=== PATIENT | male | born 1950 | race African-American/Black ===

== ENCOUNTER 2017-02-20 11:42 | Emergency (ER) | payer OTHER ==
[2017-02-20 11:48] VITALS: BP 128/43; PULSE 58; TEMP 98.2; BMI 21.7
--- NOTE | 2017-02-20 13:01 | PDOC ---
History of Present Illness - General History Source: Patient Exam Limitations: No Limitations <Michael Turcios - Last Filed: 02/20/17 13:01> - General History Source: Patient Exam Limitations: No Limitations - History of Present Illness Initial Comments: 02/20/17 13:02 The patient is a 66 year old male, with a significant past medical history of HIV, who presents to the emergency department with inguinal hernia. The patient reports first noticing the hernia about 5 days ago and has had pain in his groin since. He denies any recent fevers, chills, headache or dizziness. He denies any recent nausea, vomit, diarrhea or constipation. He denies any recent chest pain or shortness of breath. He denies any recent dysuria, frequency, urgency or hematuria. Allergies: Penicillin Past surgical history: Bilateral Knee and hip replacement Social History: Nonsmoker. Denies EtOH use and recreational drug use. Primary Care Physician: <Too Mayberry - Last Filed: 02/20/17 13:03> - General Chief Complaint: Edema Stated Complaint: SWOLLEN IN THE GROIN AREA Time Seen by Provider: 02/20/17 12:45 Past History - Past Medical History Anemia: No Asthma: No Cancer: No Cardiac Disorders: No CVA: No COPD: No CHF: No Dementia: No Diabetes: No GI Disorders: No Disorders: No HTN: No Hypercholesterolemia: No HIV: Yes Liver Disease: No Psychiatric Problems: No Seizures: No Thyroid Disease: No - Surgical History Abdominal Surgery: No Appendectomy: No Cardiac Surgery: No Cholecystectomy: No Lung Surgery: No Neurologic Surgery: No Orthopedic Surgery: Yes (bilat knee, r hip replacement s/p trauma) - Psycho/Social/Smoking Cessation Hx Anxiety: No Suicidal Ideation: No Smoking History: Current every day smoker Have you smoked in the past 12 months: Yes Number of Cigarettes Smoked Daily: 1 Cigars Per Day: 0 Information on smoking cessation initiated: No Hx Alcohol Use: Yes (SOCIAL) Drug/Substance Use Hx: No Substance Use Type: None Hx Substance Use Treatment: No <Michael Turcios - Last Filed: 02/20/17 13:01> <Too Mayberry - Last Filed: 02/20/17 13:03> - Past Medical History Allergies/Adverse Reactions: Allergies Allergy/AdvReac Type Severity Reaction Status Date / Time penicillin G Allergy Mild Rash Verified 02/20/17 11:48 Home Medications: Ambulatory Orders Unobtainable [Unobtainable] 02/20/17 Review of Systems - Review of Systems Able to Perform ROS?: Yes Comments:: 02/20/17 13:02 GENERAL/CONSTITUTIONAL: No fever or chills. No weakness. HEAD, EYES, EARS, NOSE AND THROAT: No change in vision. No ear pain or discharge. No sore throat. CARDIOVASCULAR: No chest pain or shortness of breath. RESPIRATORY: No cough, wheezing, or hemoptysis. GASTROINTESTINAL: No nausea, vomiting, diarrhea or constipation. GENITOURINARY: No dysuria, frequency, or change in urination. MUSCULOSKELETAL: No joint or muscle swelling or pain. No neck or back pain. SKIN: No rash NEUROLOGIC: No headache, vertigo, loss of consciousness, or change in strength/ sensation. ENDOCRINE: No increased thirst. No abnormal weight change. HEMATOLOGIC/LYMPHATIC: No anemia, easy bleeding, or history of blood clots. ALLERGIC/IMMUNOLOGIC: No hives or skin allergy. <Too Mayberry - Last Filed: 02/20/17 13:03> *Physical Exam - Vital Signs Last Vital Signs Temp Pulse Resp BP Pulse Ox 98.2 F 58 L 20 128/43 98 02/20/17 11:45 02/20/17 11:45 02/20/17 11:45 02/20/17 11:45 02/20/17 11:45 <Michael Turcios - Last Filed: 02/20/17 13:01> - Vital Signs Last Vital Signs Temp Pulse Resp BP Pulse Ox 98.2 F 58 L 20 128/43 98 02/20/17 11:45 02/20/17 11:45 02/20/17 11:45 02/20/17 11:45 02/20/17 11:45 - Physical Exam Comments: 02/20/17 13:02 GENERAL: Awake, alert, and fully oriented, in no acute distress HEAD: No signs of trauma EYES: PERRLA, EOMI, sclera anicteric, conjunctiva clear ENT: Auricles normal inspection, hearing grossly normal, nares patent, oropharynx clear without exudates. Moist mucosa NECK: Normal ROM, supple, no lymphadenopathy, JVD, or masses LUNGS: Breath sounds equal, clear to auscultation bilaterally. No wheezes, and no crackles HEART: Regular rate and rhythm, normal S1 and S2, no murmurs, rubs or gallops ABDOMEN: Soft, nontender, normoactive bowel sounds. No guarding, no rebound. No masses. No hernias appreciated. EXTREMITIES: Normal range of motion, no edema. No clubbing or cyanosis. No cords, erythema, or tenderness NEUROLOGICAL: Cranial nerves II through XII grossly intact. Normal speech, normal gait SKIN: Warm, Dry, normal turgor, no rashes or lesions noted. <Too Mayberry - Last Filed: 02/20/17 13:03> Medical Decision Making - Medical Decision Making 02/20/17 12:58 A portion of this note was written by my scribe under my supervision. Vital Signs Temp Pulse Resp BP Pulse Ox 98.2 F 58 L 20 128/43 98 02/20/17 11:45 02/20/17 11:45 02/20/17 11:45 02/20/17 11:45 02/20/17 11:45 66 year old male c/ hx of HIV on HAART p/w bilateral inguinal hernias. The patient reports intermittent bulging in bilateral inguinal hernias, reducible. Reports that he notices it standing up but reduces spontaneously. Denies pain, nausea, vomiting. Reports normal bowel movements. The patient has bilateral inguinal hernias, reducible. It is not present at the moment and the patient is well-appearing. No diagnostics or workup needed at this time. Reassurance given. Will refer to a general surgeon for further management as an outpatient. Return precautions given including nausea vomiting, severe pain, fever. <Michael Turcios - Last Filed: 02/20/17 13:01> *DC/Admit/Observation/Transfer - Discharge Dispostion Admit: No <Michael Turcios - Last Filed: 02/20/17 13:01> - Attestations Scribe Attestion: 02/20/17 13:03 Documentation prepared by Too Mayberry, acting as medical billing coordinator for Michael Turcios MD. <Too Mayberry - Last Filed: 02/20/17 13:03> Diagnosis at time of Disposition: Hernia - Discharge Dispostion Disposition: HOME Condition at time of disposition: Stable - Referrals Referrals: Brandon Espinosa MD [Staff Physician] - - Patient Instructions Printed Discharge Instructions: Groin Hernia -- Adult Additional Instructions: Please make an appointment with a general surgeon. Call to schedule an appointment. If you have uncontrollable pain, persistent nausea and vomiting, high fevers, please return to the ER for further evaluation.
== END 2017-02-20 13:26 | disposition home or self-care (01) ==
LOC: JER 11:42
DX: K40.90 Unilateral inguinal hernia, without obstruction or gangrene, not specified as recurrent (principal); F17.210 Nicotine dependence, cigarettes, uncomplicated; Z21 Asymptomatic human immunodeficiency virus [HIV] infection status
CPT/HCPCS: 99282-25

== ENCOUNTER 2017-03-22 11:34 | Inpatient (IN) | payer OTHER ==
--- NOTE | 2017-03-22 12:15 | PDOC ---
Attending Attestation - Resident Resident Name: Kassy Peters - ED Attending Attestation I have performed the following: I have examined & evaluated the patient, The case was reviewed & discussed with the resident, I agree w/resident's findings & plan, Exceptions are as noted - HPI HPI: 03/22/17 13:41 67y M hx of HIV on haart, presenting with weakness x 2 days. Pt states for the past 2 days he has felt weak,has fallen several times. Also endorsed some urinary incontinence. Family noticed he had a left facial droop yesterday. Pt denies any focal weakness. NO associaed fever chills, chest pain, sob, dizziness, headache, vision cahnges, numbness/tingling weakness, back pain, recent trauma/injury, dysuria, diarrhea. Constitutional - no reported Fever, Chills, HEENT: no reported vision changes, sore throat Respiratory: no reported cough, sob, hemoptysis Cardiac: no reported chest pain, palpitations, light headedness, leg swelling Abd/GI: no reported abd pain, nausea, vomiting, blood per rectum, melena, diarrhea : no reported dysuria, frequency, discharge Musculskelatal - no reported back pain, joint swelling skin - no reported bruising, erythema, rash neurological: +generalized weakness no reported headache, numbness, focal weakness, tingling, ataxia, hematologic: no reported anemia, easy bruising, easy bleeding GENERAL: The patient is awake, alert, and fully oriented, Nontoxic - in no acute distress. Cacectic, tremulous HEAD: Normocephalic, atraumatic. EYES: extraocular movements intact, sclera anicteric, conjunctiva clear. ENT: Normal voice, Moist mucous membranes. NECK: Normal range of motion, supple LUNGS: Breath sounds equal, clear to auscultation bilaterally. No wheezes, no rhonchi, no rales. HEART: Regular rate and rhythm, normal S1 and S2 without murmur, rub or gallop. ABDOMEN: Soft, nontender, normoactive bowel sounds. No guarding, no rebound. . No CVA tenderness EXTREMITIES: Normal range of motion, no edema. No clubbing or cyanosis. No cords, erythema, or tenderness. PSYCH: Normal mood, normal affect. SKIN: Warm, Dry, normal turgor, NEURO: Mental status: The patient is oriented x3. Cranial nerves: +mild flatening of L nasolabial fold Motor: 5/5 in upper and lower extermities Sensation: Sensation is intact to light touch throughout. r Gait: Normal differential includes occult infect, hypoglycemia, cva, anemia, metabolic dernagement will obtin blood work, ua, ct head 03/22/17 18:11 MRI noted for acute cortical infarcts pt given ASA will admit for further management to stroke unit neuro consulted Not TPA candidate due to unclear time of onset well outside of 6hrs - Physicial Exam PE: 03/22/17 19:46 see abovbe - Medical Decision Making 03/22/17 19:46 see above 03/22/17 19:53 Heart Score/ECG Review - ECG Impressions Comment:: 03/22/17 19:47 Twelve-lead EKG was performed and reviewed by me. There is normal sinus rhythm with a rate of 55 PACs with bigeminy nonspecific ST changes NIH Stroke Scale - Last Known Well Date/Time & Onset Date Last Known Well: 03/19/17 Time Last Known Well: 18:00 - Initial Evaluation Level of consciousness: Alert Ask patient the month and their age: Answers both correctly Ask patient to open & close eyes; make fist and let go: Obeys both correctly Best gaze (horizontal eye movement): Normal Visual field testing: No visual field loss Facial paresis (Show teeth/raise eyebrows/close eyes tight): Minor paralysis ( flattened nasolabial fold, asymmetry on smiling) Motor Function: Left Arm: Normal Motor Function: Right Arm: Normal (extends arm 90 (or 45) degrees for 10 seconds without drift Motor Function: Left Leg: Normal (extends leg 30 degrees for 5 seconds without drift) Motor Function: Right Leg: Normal (extends leg 30 degrees for 5 seconds without drift) Limb Ataxia: No ataxia Sensory(Use pinprick test arms,legs,trunk,face/side to side): Normal Best language (Describe picture, name items, read sentences): No Aphasia Dysarthria (read several words): Normal articulation Extinction and Inattention: No abnormality - Total Score NIH Stroke Scale Score: 1
--- NOTE | 2017-03-22 12:22 | PDOC ---
History of Present Illness - General Chief Complaint: Weakness Stated Complaint: Weakness Time Seen by Provider: 03/22/17 11:48 History Source: Patient Exam Limitations: No Limitations - History of Present Illness Initial Comments: 03/22/17 12:23 CC: "I feel weak" Patient is a 67 y.o. male with a PMH of HIV (on HAART, most recent CD4 629) who presents to our ED today c/o 2 day h/o of weakness. Patient states he woke up two days previous and he felt weak which he describes as little strength and a generalized fatigue. Patient notes he can walk but feels very tired when he does so though he denies any associated chest pain or shortness of breath. Patient also notes that yesterday he felt the urge to urinate but couldn't do so. Patient was evaluated in the HIV clinic today and was instructed to come to the ED when they noted L sided facial droop on exam Timing/Duration: other (2 days) Severity: mild Modifying Factors: improves with: rest Associated Symptoms: reports: denies symptoms Aspirin Received prior to arrival: Yes: no aspirin today Past History - Past Medical History Allergies/Adverse Reactions: Allergies Allergy/AdvReac Type Severity Reaction Status Date / Time penicillin G Allergy Mild Rash Verified 03/22/17 12:04 Home Medications: Ambulatory Orders Unobtainable [Unobtainable] 03/22/17 Anemia: No Asthma: No Cancer: No Cardiac Disorders: No CVA: No COPD: No CHF: No Dementia: No Diabetes: No GI Disorders: No Disorders: No HTN: No Hypercholesterolemia: No HIV: Yes Liver Disease: No Psychiatric Problems: No Seizures: No Thyroid Disease: No - Surgical History Abdominal Surgery: No Appendectomy: No Cardiac Surgery: No Cholecystectomy: No Lung Surgery: No Neurologic Surgery: No Orthopedic Surgery: Yes (bilat knee, r hip replacement s/p trauma) - Immunization History Immunization Up to Date: Yes - Psycho/Social/Smoking Cessation Hx Anxiety: No Suicidal Ideation: No Smoking History: Current every day smoker Have you smoked in the past 12 months: Yes Number of Cigarettes Smoked Daily: 1 Cigars Per Day: 0 Information on smoking cessation initiated: No Hx Alcohol Use: No Drug/Substance Use Hx: No Substance Use Type: None Hx Substance Use Treatment: No *Physical Exam - Vital Signs Last Vital Signs Temp Pulse Resp BP Pulse Ox 98.7 F 69 16 142/97 100 03/22/17 11:47 03/22/17 11:47 03/22/17 11:47 03/22/17 11:47 03/22/17 11:47 - Physical Exam General Appearance: Yes: Appropriately Dressed, Cachetic HEENT: positive: EOMI, RAHEEM Neck: positive: Trachea midline, Supple Respiratory/Chest: positive: Lungs Clear, Normal Breath Sounds Cardiovascular: positive: Regular Rhythm, Regular Rate, S1, S2 Gastrointestinal/Abdominal: positive: Normal Bowel Sounds, Soft Musculoskeletal: positive: Normal Inspection, Other (Normal non-anatalgic gait) Extremity: positive: Normal Inspection, Normal Range of Motion Neurologic: positive: associate justice II-XII NML intact, Fully Oriented, Alert, Motor Strength 5/5, Facial Droop (L sided facial drop) ED Treatment Course - LABORATORY CBC & Chemistry Diagram: 03/22/17 12:26 03/22/17 12:26 Medical Decision Making - Medical Decision Making 03/22/17 12:31 As patient has noted L sided facial droop (CN VII intact) CT Scan of the head was ordered to r/o CVA noting that patient is outside window for TPA (symptom onset > 48 hours). CBC, BMP were within normal limits, making anemia or metabolic etiologies less likely. As patient's CT scan showed periventricular white matter lesions suggestive of possible MS, patient was sent for MRI. MRI showed: (1) R frontal and subcortical infarct; (2) chronic cerebral infarct and (3) punctuate chronic L pontine infarct. Aspirin was administered, neurology consulted and patient was admitted under Dr. Rodriguez. *DC/Admit/Observation/Transfer Diagnosis at time of Disposition: CVA (cerebral vascular accident) - Discharge Dispostion Admit: Yes - Attestations Physician Attestion: 03/22/17 20:00 I, Dr. Kassy Peters, attest that this document has been prepared under my direction and personally reviewed by me in its entirety. I further attest, that it accurately reflects all work, treatment, procedures and medical decision -making performed by me.
[2017-03-22 12:32] LABS: BASOPHIL 0.9 % (0-2.0); EOSINOPHIL 3.2 % (0-4.5); MCH 31.4 pg (25.7-33.7); MEAN CELL VOLUME 92.4 fl (80-96); MEAN PLT VOLUME 7.9 fl (7.5-11.1); NEUTROPHILS 55.3 % (42.8-82.8); PLATELET COUNT 175 K/MM3 (134-434); WHITE BLOOD COUNT 4.4 K/mm3 (4.0-10.0)
[2017-03-22 12:59] LABS: ALBUMIN 3.9 g/dl (3.4-5.0); ANION GAP 7 (8-16); BILIRUBIN,TOTAL 0.6 mg/dL (0.2-1.0); CO2 27 mmol/L (21-32); CREATININE 1.5 mg/dL (0.7-1.3); GLUCOSE,RANDOM 107 mg/dL (74-106); SGOT/AST 37 U/L (15-37); SGPT/ALT 34 U/L (12-78); TOT PROT 7.5 g/dl (6.4-8.2)
[2017-03-22 13:00] LABS: ALK PHOS 67 U/L (45-117)
[2017-03-22] MEDS ORDERED: ACETAMINOPHEN 325 MG TABLET (FP) PO ONE (17:52)
[2017-03-22] MEDS ORDERED: ACETAMINOPHEN 325 MG TABLET (FP) ONE (17:57)
[2017-03-22] MEDS ORDERED: ASPIRIN 81 MG CHEWABLE TABLETS PO ONE (18:11)
[2017-03-22 18:24] LABS: URINE APPEARANCE CLEAR; URINE BILIRUBIN NEGATIVE (NEGATIVE); URINE COLOR LTYELLOW; URINE GLUCOSE (UA) NEGATIVE (NEGATIVE); URINE KETONE TRACE (NEGATIVE); URINE LEUK ESTERASE NEGATIVE (NEGATIVE); URINE NITRITE NEGATIVE (NEGATIVE); URINE PROTEIN NEGATIVE (NEGATIVE); URINE UROBILINOGEN NEGATIVE mg/dL (0.2-1.0)
[2017-03-22 18:27] LABS: URINE BLOOD 2+ (NEGATIVE)
[2017-03-22] MEDS ORDERED: ASPIRIN 81 MG CHEWABLE TABLETS ONE (18:31)
[2017-03-22 18:34] LABS: URINE HYALINE CAST 3 /lpf; URINE MUCUS RARE; URINE RBC 6 /hpf (0-3); URINE WBC <1 /hpf (3-5)
--- NOTE | 2017-03-22 19:33 | HP ---
CHIEF COMPLAINT: "i feel weak: PCP: clinic patient HISTORY OF PRESENT ILLNESS: This is a 67 yo M with PMH of HIV (on HAART, most recent CD4 629), arrythmia not on a/c, who presents due to generalized weakness x 2 d that started in the morning. He presents due to L facial droop that was noted in his HIV clinic today. He reports falling down 2x in [place] past 2 days due to poor balance w/o head trauma. he also had one episode of nbnb vomiting yestarday not accompanied by abd pain. He abhijeet choking or difficulty swallowing. He denies, chest pain sob, palpitations or light headedness. He reports occasional difficulty initiating urination since yesterday. Patient outside of TPA window, given ASA in ED, Neuro regional commercial sales manager consulted. ER course was notable for: (1)labs, EKG (2) CXR wnl. EKG atrial premature complexesin bigeminy. sinus vince 55 (3) head CT w/o contrast Brain MRI: acute R frontal cortical and subcortical infarcts, other chronic infarcts Recent Travel: denies PAST MEDICAL HISTORY: as above PAST SURGICAL HISTORY: as above Social History: Smoking: daily 2 cig/day Alcohol:denies Drugs: daily marijuana Family History: CAD Allergies penicillin G Allergy (Mild, Verified 03/22/17 12:04) Rash HOME MEDICATIONS: Home Medications Medication Instructions Recorded Unobtainable [Unobtainable] 03/22/17 REVIEW OF SYSTEMS CONSTITUTIONAL: Absent: fever, chills, weight change HEENT: Absent: rhinorrhea, nasal congestion, throat pain, difficulty swallowing CARDIOVASCULAR: Absent: chest pain, syncope, palpitations, irregular heart rate, lightheadedness , peripheral edema RESPIRATORY: Absent: cough, shortness of breath, dyspnea with exertion, orthopnea, wheezing, stridor, hemoptysis GASTROINTESTINAL: Absent: abdominal pain, abdominal distension, nausea, vomiting, diarrhea, constipation, melena, hematochezia GENITOURINARY: Absent: dysuria, flank pain MUSCULOSKELETAL: Absent: myalgia, arthralgia SKIN: Absent: rash, itching, pallor HEMATOLOGIC/IMMUNOLOGIC: Absent: easy bleeding, easy bruising ENDOCRINE: Absent: unexplained weight gain, unexplained weight loss NEUROLOGIC: Absent: headache, focal weakness or paresthesias, dizziness, seizure, mental status changes, bladder or bowel incontinence PSYCHIATRIC: Absent: anxiety, depression PHYSICAL EXAMINATION Vital Signs - 24 hr 03/22/17 03/22/17 11:47 15:10 Temperature 98.7 F Pulse Rate 69 74 Respiratory 16 Rate Blood Pressure 142/97 O2 Sat by Pulse 100 100 Oximetry (%) GENERAL: Awake, alert, and fully oriented, in no acute distress. HEAD: Normal with no signs of trauma. EYES: Pupils equal, round and reactive to light, extraocular movements intact, sclera anicteric, conjunctiva clear. No lid lag. EARS, NOSE, THROAT:Moist mucous membranes. NECK: supple LUNGS: Breath sounds equal, clear to auscultation bilaterally. HEART: Regularly irregular, s1s2 ABDOMEN: Soft, nontender, not distended, normoactive bowel sounds, No hepatomegaly or splenomegaly. MUSCULOSKELETAL: No CVA tenderness. UPPER EXTREMITIES: 2+ pulses, warm, well-perfused. No cyanosis. No clubbing. No peripheral edema. LOWER EXTREMITIES: 2+ pulses, warm, well-perfused. No calf tenderness. No peripheral edema. NEUROLOGICAL: slight L facial droop around mouth, not involving eyebrow, sensation intact. strength 5/5 in all extremities, sensation inract. Bicep reflexes 2+ b/l, R petellar 2=, L patellar 1+. cerebellar finger-nose exam wnl, repetitive motion test failed. PSYCHIATRIC: Cooperative. Good eye contact. Appropriate mood and affect. SKIN: Warm, dry Laboratory Results - last 24 hr 03/22/17 03/22/17 03/22/17 12:26 12:26 18:00 WBC 4.4 RBC 4.11 Hgb 12.9 Hct 37.9 MCV 92.4 MCH 31.4 MCHC 34.0 RDW 14.0 Plt Count 175 D MPV 7.9 Neutrophils % 55.3 Lymphocytes % 31.4 Monocytes % 9.2 Eosinophils % 3.2 Basophils % 0.9 Sodium 139 Potassium 4.2 Chloride 105 Carbon Dioxide 27 Anion Gap 7 L BUN 23 H Creatinine 1.5 H Creat Clearance w eGFR 46.40 Random Glucose 107 H Calcium 9.0 Total Bilirubin 0.6 D AST 37 D ALT 34 D Alkaline Phosphatase 67 Total Protein 7.5 Albumin 3.9 Urine Color Ltyellow Urine Appearance Clear Urine pH 6.0 Urine Protein Negative Urine Glucose (UA) Negative Urine Ketones Trace H Urine Blood 2+ H Urine Nitrite Negative Urine Bilirubin Negative Urine Urobilinogen Negative Ur Leukocyte Esterase Negative Urine RBC 6 Urine WBC <1 Hyaline Casts 3 Urine Mucus Rare ASSESSMENT/PLAN: This is a 67 yo M with PMH of HIV (on HAART, most recent CD4 629), arrythmia not on a/c, who presents due to generalized weakness x 2 d that started in the morning, poor balance and L facial droop Please reconcile HIV meds Acute CVA -Neuro on board -MRI brain acute R frontal cortical and subcortical infarcts -outside of TPA window -antiplatelet and high does statin therapy -tele monitoring -neuro check q 4 -permissive HTN -patient able to swallow in ed -swallow eval -fall precautions -TTE, carotid duplex -lipid panel, tsh, a1c HIV -continue HAART FEN -NS @ 75 -lytes stable -npo except meds -scd, diet Dispo: adm tele Problem List - Problem (1) HIV (human immunodeficiency virus infection) Code(s): Z21 - ASYMPTOMATIC HUMAN IMMUNODEFICIENCY VIRUS INFECTION STATUS (2) CVA (cerebral vascular accident) Code(s): I63.9 - CEREBRAL INFARCTION, UNSPECIFIED Visit type - Emergency Visit Emergency Visit: Yes Care time: The patient presented to the Emergency Department on the above date and was hospitalized for further evaluation of their emergent condition. - New Patient This patient is new to me today: Yes Date on this admission: 03/22/17 - Critical Care Critical Care patient: No
[2017-03-22] MEDS ORDERED: SODIUM CHLORIDE 1,000 ML IV SCH (20:15)
--- NOTE | 2017-03-22 21:37 | PN ---
Teaching Attending Note Name of Resident: Kimmie Dodge ATTENDING PHYSICIAN STATEMENT I saw and evaluated the patient. Chart, data, imaging reviewed. I reviewed the resident's note and discussed the case with the resident. I agree with the resident's findings and plan as documented except for modifications in attending note below. SUBJECTIVE: Admitting diagnosis- acute CVA 67 yo M with PMH of HIV (on HAART, most recent CD4 629), HTN, marijuana abuse, cardiac arrhythmia not on anticoagulation, c/o not being able to stand up for the last 2 days and left facial droop. He reports difficulty with ambulation. No trauma. He denied any focal weaknesses, loss of sensation, changes with speech, or difficulty with swallowing. No chest pain or shortness of breath. ROS-negative except for above OBJECTIVE: Last Vital Signs Temp Pulse Resp BP Pulse Ox 98.6 F 56 L 18 157/98 99 03/22/17 20:42 03/22/17 20:42 03/22/17 20:42 03/22/17 20:42 03/22/17 20:42 Physical Exam General- NAD, AAox3, follows commands, answers questions HEENT- AT, NC , no sinus tenderness CV- s1+S2+ RRR, no murmurs, rubs, gallops Chest- CTA b/l Abdomen soft, NT, BS+, no masses appreciated Skin- no rashes appreciated Neuro- left lower facial droop+, CN 3-12 otherwise intact, left upper extremity 4/5 motor Laboratory Results - last 24 hr 03/22/17 03/22/17 03/22/17 12:26 12:26 18:00 WBC 4.4 RBC 4.11 Hgb 12.9 Hct 37.9 MCV 92.4 MCH 31.4 MCHC 34.0 RDW 14.0 Plt Count 175 D MPV 7.9 Neutrophils % 55.3 Lymphocytes % 31.4 Monocytes % 9.2 Eosinophils % 3.2 Basophils % 0.9 Sodium 139 Potassium 4.2 Chloride 105 Carbon Dioxide 27 Anion Gap 7 L BUN 23 H Creatinine 1.5 H Creat Clearance w eGFR 46.40 Random Glucose 107 H Calcium 9.0 Total Bilirubin 0.6 D AST 37 D ALT 34 D Alkaline Phosphatase 67 Total Protein 7.5 Albumin 3.9 Urine Color Ltyellow Urine Appearance Clear Urine pH 6.0 Urine Protein Negative Urine Glucose (UA) Negative Urine Ketones Trace H Urine Blood 2+ H Urine Nitrite Negative Urine Bilirubin Negative Urine Urobilinogen Negative Ur Leukocyte Esterase Negative Urine RBC 6 Urine WBC <1 Hyaline Casts 3 Urine Mucus Rare Brain MRI - right frontal cortical and subcortical acute infarcts ASSESSMENT AND PLAN: Acute CVA- right frontal cortical and subcortical acute infarcts. Patient is outside of TPA window. Passed bedside swallow test. Patient is clinically stable for admission to telemetry. -admit to telemetry -EKG -strict bed rest -neurology consult in am -NPO -Transthoracic echocardiogram -repeat MRI of brain in 24hrs +/- brain MRA -aspirin 81mg daily -neuro check q 4 hours -permissive hypertension -fall precautions -b/l carotid duplex -lipid panel, tsh, a1c -Urine toxicology screen -speech and swallow evaluation -physical therapy evaluation #HIV- well controlled on ART medications-(recent CD4 629) -order CD4 count, HIV viral load -continue ART medications (confirm with pharmacy medications tomorrow) #SHEY -UA -urine lytes -Gentle IV fluid hydration -renal U/S -avoid nephrotoxic medications #RBC in urine -repeat UA -consider evaluation if persistent RBC in urine + #DVT ppx -SCDs #diet -NPO pending speech and swallow evaluation
[2017-03-22] MEDS: SODIUM CHLORIDE 1,000 ML IV SCH (23:25)
[2017-03-22] MEDS: ATORVASTATIN CA 80 MG TABLET (FP) PO SCH (23:26)
[2017-03-23 00:54] VITALS: BMI 23.7
--- NOTE | 2017-03-23 07:31 | PN ---
Progress Note (short form) - Note Progress Note: Chief Complaint: Events noted, notes reviewed, progressive weakness, left sided weakness, acute stroke History of Present Illness: Seen and examined on telemetry. Full consult dictated - Current Medication List Current Medications Aspirin (Ecotrin -) 81 mg PO DAILY RAFFI Atorvastatin Calcium (Lipitor -) 80 mg PO HS [facility] Last Admin: 03/22/17 23:26 Dose: 80 mg Sodium Chloride (Normal Saline -) 1,000 mls @ 75 mls/hr IV ASDIR RAFFI Last Admin: 03/22/17 23:25 Dose: 75 mls/hr Review of Systems Cardiovascular: As noted above Respiratory: denies: Cough or Sputum Production Gastrointestinal: denies: Nausea, Vomiting, Diarrhea, Constipation or Abdominal Discomfort Musculoskeletal: No Symptoms Reported Endocrine: No Symptoms Reported - Objective Vital Signs: Last Vital Signs Temp Pulse Resp BP Pulse Ox 98.1 F 49 L 16 124/68 99 03/23/17 03:00 03/23/17 03:00 03/23/17 03:00 03/23/17 03:00 03/23/17 00:55 Constitutional: No Distress, Calm Neck: Supple Negative JVD No Bruit Cardiovascular: S1 S2 Regular Rate and Rhythm Grade 1/6 Systolic Murmur Respiratory: Clear to A&P Bilaterally Gastrointestinal: Soft Benign Normal Bowel Sounds Ext: No Edema Labs: CBC, BMP 03/22/17 12:26 03/22/17 12:26 Hepatic Panel Total Bilirubin 0.6 mg/dL (0.2-1.0) D 03/22/17 12:26 AST 37 U/L (15-37) D 03/22/17 12:26 ALT 34 U/L (12-78) D 03/22/17 12:26 Alkaline Phosphatase 67 U/L (45-117) 03/22/17 12:26 Albumin 3.9 g/dl (3.4-5.0) 03/22/17 12:26 Assessment/Plan ASSESSMENT: 1. Clinical presentation consistent with acute stroke, abnormal MRI of the brain , embolic disease to be considered differential includes cardiac source of embolization (PAF), paradoxical embolization, aortic atherosclerotic disease, carotid atherosclerotic disease or intra-cranial vascular disease 2. Sinus bradycardia with APC's, PVC's and AIVR 3. Heart Murmur 4. HIV 5. CKD PLAN: 1. Continue ASA pending completion of evaluation 2. Echocardiography for evaluation of LV/RV function and valvular function 3. Holter monitor for evaluation of the above noted arrhythmia 4. MRA of the Brain 5. Pending results of above consideration for proceeding with MANI and extended monitoring as outpatient to evaluate PAF Geovani Blanton MD
[2017-03-23 08:04] LABS: CHOLESTEROL 169 mg/dL (50-200); LDL CHOLESTEROL (ONLY SJRH) 104 mg/dL (5-100)
[2017-03-23 08:15] LABS: MCH 30.9 pg (25.7-33.7); MCHC 33.8 g/dl (32.0-35.9); MEAN CELL VOLUME 91.6 fl (80-96); MEAN PLT VOLUME 8.4 fl (7.5-11.1); PLATELET COUNT 186 K/MM3 (134-434); RDW 13.8 % (11.9-15.9); WHITE BLOOD COUNT 4.6 K/mm3 (4.0-10.0)
--- NOTE | 2017-03-23 08:33 | EKG ---
Test Reason : Blood Pressure : / mmHG Vent. Rate : 055 BPM Atrial Rate : 055 BPM P-R Int : 188 ms QRS Dur : 104 ms QT Int : 428 ms P-R-T Axes : 037 029 -20 degrees QTc Int : 409 ms SINUS BRADYCARDIA WITH PREMATURE ATRIAL COMPLEXES IN A PATTERN OF BIGEMINY NONSPECIFIC ST ABNORMALITY ABNORMAL ECG WHEN COMPARED WITH ECG OF 18-AUG-2015 12:19, PREMATURE ATRIAL COMPLEXES ARE NOW PRESENT Confirmed by LUZ VILLAREAL, AMELIE ([id number]) on 03/23/2017 8:32:44 AM Referred By: Confirmed By:AMELIE ESCOBAR MD
[2017-03-23 08:53] LABS: CHOLESTEROL 167 mg/dL (50-200)
[2017-03-23] MEDS: ASPIRIN COATED 81 MG TABLET.EC PO SCH (09:15)
[2017-03-23 09:20] LABS: ANION GAP 10 (8-16); CALCIUM 8.7 mg/dL (8.5-10.1); CO2 24 mmol/L (21-32); CREATININE 1.1 mg/dL (0.7-1.3); GLUCOSE,RANDOM 87 mg/dL (74-106); PHOSPHOROUS 2.9 mg/dL (2.5-4.9)
--- NOTE | 2017-03-23 09:59 | PN ---
Physical Exam: SUBJECTIVE: Patient seen and examined. He says he feels well. He is eating without difficulty. OBJECTIVE: Vital Signs Period Temp Pulse Resp BP Sys/Green Pulse Ox Last 24 Hr 97.6 F-98.6 F 48-75 16-18 117-157/58-98 99-99 GENERAL: The patient is awake, alert, and fully oriented, in no acute distress. NECK: Supple. LUNGS: Breath sounds equal, clear to auscultation bilaterally, no wheezes, no crackles, no accessory muscle use. HEART: Regular rate and rhythm, S1, S2 without murmur, rub or gallop. ABDOMEN: Soft, nontender, nondistended, normoactive bowel sounds, no guarding, no rebound, no hepatosplenomegaly, no masses. EXTREMITIES: 2+ pulses, warm, well-perfused, no edema. NEUROLOGICAL: Left facial droop, normal speech, strength 5/5 in all extremities , gait not observed. Laboratory Results - last 24 hr 03/22/17 03/23/17 03/23/17 20:03 06:00 06:00 WBC RBC Hgb Hct MCV MCH MCHC RDW Plt Count MPV Sodium Potassium Chloride Carbon Dioxide Anion Gap BUN Creatinine Random Glucose Hemoglobin A1c % 5.5 5.7 D Calcium Phosphorus Magnesium Triglycerides 63 Cholesterol 169 Total LDL Cholesterol 104 H HDL Cholesterol 53 03/23/17 03/23/17 07:00 09:06 WBC 4.6 RBC 4.13 Hgb 12.8 Hct 37.8 MCV 91.6 MCH 30.9 MCHC 33.8 RDW 13.8 Plt Count 186 MPV 8.4 Sodium 139 Potassium 4.0 Chloride 105 Carbon Dioxide 24 Anion Gap 10 BUN 16 D Creatinine 1.1 D Random Glucose 87 Hemoglobin A1c % Calcium 8.7 Phosphorus 2.9 Magnesium 2.0 Triglycerides Cholesterol Total LDL Cholesterol HDL Cholesterol Active Medications Generic Name Dose Route Start Last Admin Trade Name Freq PRN Reason Stop Dose Admin Aspirin 81 mg 03/23/17 10:00 03/23/17 09:15 Ecotrin - PO 81 mg DAILY RAFFI Administration Atorvastatin Calcium 80 mg 03/22/17 22:00 03/22/17 23:26 Lipitor - PO 80 mg HS RAFFI Administration Sodium Chloride 1,000 mls @ 75 mls/hr 03/22/17 23:15 03/22/17 23:25 Normal Saline - IV 75 mls/hr ASDIR RAFFI Administration ASSESSMENT/PLAN: This is a 67-year-old man with a history of HIV, arrhythmia who presented to the ER with fatigue, weakness and left facial droop. 1. Acute right frontal infarcts with multiple chronic bilateral cerebral infarcts and chronic left pontine infarct - Likely embolic - Continue to monitor on telemetry - Cardiology consult appreciated - Holter, echo - May need MANI - Neurology consult - Continue aspirin, Lipitor - PT, speech/swallow evaluations 2. HIV - Patient reports being on HAART at home but does not the medications - will obtain home medication list 3. History of arrhythmia Visit type - Emergency Visit Emergency Visit: Yes ED Registration Date: 03/22/17 Care time: The patient presented to the Emergency Department on the above date and was hospitalized for further evaluation of their emergent condition. - New Patient This patient is new to me today: Yes Date on this admission: 03/23/17 - Critical Care Critical Care patient: No - Discharge Referral Referred to [facility] Med P.C.: No
--- NOTE | 2017-03-23 11:02 | CON.NEURO ---
Consult - History of Present Illness History of Present Illness: PI 67 year old male hsitory of hiv ( on haart and cd4 is 629), as per patient he is complaint . Patient denies any cardiac condition but in chart it is mentioned that he has cardiac arrthmia. Patient has been experiencing generalized weakness and balance difficulty. Now he denies any difficulty swallowing or headhace , no motor weakness. He is able to walk . He was out side of [employer] window . vascualr risk factor include Smoking and HIV ( He denies DM, HTN HYPERLIPIDEMIA ) his is a 67 yo M with PMH of HIV (on HAART, most recent CD4 629), arrythmia not on a/c, who presents due to generalized weakness x 2 d that started in the morning. He presents due to L facial droop that was noted in his HIV clinic today. He reports falling down 2x in [place] past 2 days due to poor balance w/o head trauma. he also had one episode of nbnb vomiting yestarday not accompanied by abd pain. He abhijeet choking or difficulty swallowing. He denies, chest pain sob, palpitations or light headedness. He reports occasional difficulty initiating urination since yesterday. Patient outside of TPA window, given ASA in ED, Neuro delivery consultant consulted. - Alcohol/Substance Use Hx Alcohol Use: No - Smoking History Smoking history: Current every day smoker Have you smoked in the past 12 months: Yes Aproximately how many cigarettes per day: 1 Home Medications - Allergies Allergies/Adverse Reactions: Allergies Allergy/AdvReac Type Severity Reaction Status Date / Time penicillin G Allergy Mild Rash Verified 03/22/17 12:04 - Home Medications Home Medications: Ambulatory Orders Unobtainable [Unobtainable] 03/22/17 Family Disease History - Family Disease History Family Disease History: Diabetes: Grandparent, Mother (dec'd 83 "old age"), Brother (2 brothers 1 with dm and ca), Other: Father (mostly unk), Mother, Brother, Sister (1 a&w), Son (2), Daughter (1) Physical Exam-Neuro Vital Signs: Vital Signs Temperature 98.2 F 03/23/17 07:00 Pulse Rate 48 L 03/23/17 07:00 Respiratory Rate 16 03/23/17 07:00 Blood Pressure 125/62 03/23/17 07:00 O2 Sat by Pulse Oximetry (%) 99 03/23/17 00:55 Labs: CBC, BMP 03/23/17 07:00 03/23/17 09:06 NIH Stroke Scale - Total Score NIH Stroke Scale Score: 0 Imaging - Results Cat Scan: Report Reviewed MRI: Image Reviewed Assessment/Plan cc acute stroke HPI 67 year old male hsitory of hiv ( on haart and cd4 is 629), as per patient he is complaint . Patient denies any cardiac condition but in chart it is mentioned that he has cardiac arrthmia. Patient has been experiencing generalized weakness and balance difficulty. Now he denies any difficulty swallowing or headhace , no motor weakness. He is able to walk . He was out side of [employer] [place] window . vascualr risk factor include Smoking and HIV ( He denies DM, HTN HYPERLIPIDEMIA ) his is a 67 yo M with PMH of HIV (on HAART, most recent CD4 629), arrythmia not on a/c, who presents due to generalized weakness x 2 d that started in the morning. He presents due to L facial droop that was noted in his HIV clinic today. He reports falling down 2x in [place] past 2 days due to poor balance w/o head trauma. he also had one episode of nbnb vomiting yestarday not accompanied by abd pain. He abhijeet choking or difficulty swallowing. He denies, chest pain sob, palpitations or light headedness. He reports occasional difficulty initiating urination since yesterday. Patient outside of TPA window, given ASA in ED, Neuro delivery consultant consulted. Allergies penicillin G Allergy (Mild, Verified 03/22/17 12:04) Rash Neurological Exmiantion Alert and oriented x 3, speech is normal ( he is not wearing any denture) able to follow command Mild left facial droopiness, eomi and pupilks are reactive, visual field is normal motor , normal strength in all four extremity , he is able to walk Sensation is normal Assessment 67 year old male history of HIV and admitted for feeling generalized weak and left sided facial droopiness, and found to have large right MCA ischemic stroke Plan -- continue aspirin and statin - slate roofer helper saw case and ordered echo and holter -mri of brain done - picture reviewed - pt , dvt prophylaxis and swallowing study - stroke education and smoking cessation thank you so much norberto gottlieb md
[2017-03-23 20:13] LABS: URINE APPEARANCE CLEAR; URINE BILIRUBIN NEGATIVE (NEGATIVE); URINE COLOR YELLOW; URINE GLUCOSE (UA) NEGATIVE (NEGATIVE); URINE KETONE NEGATIVE (NEGATIVE); URINE NITRITE NEGATIVE (NEGATIVE); URINE PROTEIN NEGATIVE (NEGATIVE); URINE UROBILINOGEN NEGATIVE mg/dL (0.2-1.0)
[2017-03-23 20:20] LABS: URINE BLOOD 1+ (NEGATIVE); URINE LEUK ESTERASE 2+ (NEGATIVE)
[2017-03-23 20:21] LABS: URINE MUCUS RARE; URINE RBC 11 /hpf (0-3); URINE WBC 24 /hpf (3-5)
[2017-03-23] MEDS: ATORVASTATIN CA 80 MG TABLET (FP) PO SCH (21:46)
[2017-03-23] MEDS: SODIUM CHLORIDE 1,000 ML IV SCH (23:15)
--- NOTE | 2017-03-24 07:39 | PN ---
Progress Note (short form) - Note Progress Note: Chief Complaint: Events noted, notes reviewed, no new neurological deficits reported, left sided weakness improved, denies any chest pain or dyspnea History of Present Illness: Seen and examined on telemetry. Events noted, notes reviewed, no new neurological deficits reported, left sided weakness improved, denies any chest pain or dyspnea Plan to proceed with TTE and possible MANI to evaluate source of embolism Telemetry reviewed, sinus rhythm with sinus bradycardia, APC's, PVC's, and non- sustained VT - Current Medication List Current Medications Aspirin (Ecotrin -) 81 mg PO DAILY [facility] Last Admin: 03/23/17 09:15 Dose: 81 mg Atorvastatin Calcium (Lipitor -) 80 mg PO HS [facility] Last Admin: 03/23/17 21:46 Dose: 80 mg Sodium Chloride (Normal Saline -) 1,000 mls @ 75 mls/hr IV ASDIR [facility] Last Admin: 03/22/17 23:25 Dose: 75 mls/hr Review of Systems Cardiovascular: As noted above Respiratory: denies: Cough or Sputum Production Gastrointestinal: denies: Nausea, Vomiting, Diarrhea, Constipation or Abdominal Discomfort Musculoskeletal: No Symptoms Reported Endocrine: No Symptoms Reported - Objective Vital Signs: Last Vital Signs Temp Pulse Resp BP Pulse Ox 98.4 F 50 L 18 146/70 99 03/24/17 06:00 03/24/17 06:00 03/24/17 06:00 03/24/17 06:00 03/23/17 20:56 Constitutional: No Distress, Calm Neck: Supple Negative JVD No Bruit Cardiovascular: S1 S2 Regular Rate and Rhythm Grade 1/6 Systolic Murmur Respiratory: Clear to A&P Bilaterally Gastrointestinal: Soft Benign Normal Bowel Sounds Ext: No Edema Labs: CBC, BMP 03/23/17 07:00 03/23/17 09:06 Hepatic Panel Total Bilirubin 0.6 mg/dL (0.2-1.0) D 03/22/17 12:26 AST 37 U/L (15-37) D 03/22/17 12:26 ALT 34 U/L (12-78) D 03/22/17 12:26 Alkaline Phosphatase 67 U/L (45-117) 03/22/17 12:26 Albumin 3.9 g/dl (3.4-5.0) 03/22/17 12:26 Assessment/Plan ASSESSMENT: 1. Acute stroke, abnormal MRI of the brain, embolic disease to be considered differential includes cardiac source of embolization: (PAF), paradoxical embolization, aortic atherosclerotic disease, carotid atherosclerotic disease or intra-cranial vascular disease 2. Sinus bradycardia with APC's, PVC's, AIVR and non-sustained VT 3. Heart Murmur related to AV disease probable AV sclerosis, unlikely stenosis 4. HIV 5. CKD PLAN: 1. Continue ASA pending completion of evaluation 2. Echocardiography for evaluation of LV/RV function and valvular function 3. Holter monitor for evaluation of the above noted arrhythmia, in progress 4. Recommend MRA of the Brain, to be discussed with neurology 5. Pending results of above consideration for proceeding with MANI and extended monitoring as outpatient to evaluate possible PAF Geovani Blanton MD
[2017-03-24] MEDS: ASPIRIN COATED 81 MG TABLET.EC PO SCH (10:06)
--- NOTE | 2017-03-24 10:37 | CONSULT ---
Admitting History and Physical - Advance Directives Advance Directives: Yes: Living Will - Smoking History Smoking history: Current every day smoker Have you smoked in the past 12 months: Yes Aproximately how many cigarettes per day: 1 - Alcohol/Substance Use Hx Alcohol Use: No History - Admission Reason For Visit: STROKE LIKE SYMPTOMS - Hearing Hearing Aide: No With Patient: No Speech Evaluation - Communication Primary Language: [place] Communication: Yes: Within Normal Limits Oral Expression Ability: Yes: No Impairment - Speech Production Able to Make Needs Known: Yes: WNL Intelligibility: Yes: WNL - Speech Characteristics Voice Loudness: Normal Voice Pitch: Yes: Normal Voice Phonatory-based Quality: Yes: Normal Nasal Resonance: Normal Articulation: Yes: Precise Rate of Speech: Intact - Language/Auditory Comprehension Follows: Yes: 1 Stage Simple Commands (WFL), 2 Stage Simple Commands (WFL) Observation: Able to respond to yes/no queries: Yes, Yes/No Confusion: No, Comprehends Conversational Speech: Yes, Benefits from Slow Speech: No, Benefits from Repetiton: No, Benefits from Increased Volume of Speech: No - Language/Verbal Expression Able to Respond to Simple Queries: Yes: WNL Able to Communicate Wants and Needs: Yes: WNL Functional Communication Status: Yes: WNL Aware of Errors: Yes Attempts to Correct Errors: Yes Use of Gestures: No Written Expression: not examined Oral Expression: WFL Reading Comprehension: not examined Calculations: not examined - Memory/Perception USP Memory: Yes: WNL Short Term Memory: Yes: WNL - Swallow Evaluation/Bedside Assessment Current Nutritional Intake: Dysphagia Whole, Thin Liquids Oral Secretions: Yes: WFL Tracheostomy Present: No Patient on Ventilator: No Dentition: Yes: Edentulous, Missing Teeth Facial Symmetry at Rest: Facial Droop Left (mild but WFL) Facial Symmetry on Retraction: Facial Droop Left (mild) Facial Movement: Controlled Sensation: Normal Facial Comment: WF for speech and swallowing purposes Jaw Position: Open at Rest Against Resistance Opening: Normal Against Resistance Closing: Normal Pucker Lips: Droops Left Smile: Droops Left Lips, Comment: mild weakness left side but WFL for speech and swallowing purposes Lingual Movement: Normal Lingual Speed of Movement: Normal Lingual Movement Characteristics: Normal Lingual Comment: WF for speech and swallowing purposes Soft Palate Description: Normal Color Hard Palate Description: Normal Color Gag Reflex: Strong Bite Reflex: Present Laryngeal Elevation: WFL Laryngeal Movement: Able to Palpate Needs Assistance: No Rate of Intake: WFL Bolus Size: WFL Labial Seal: WFL Chewing: WFL Oral Prep Time: WFL Timing of Swallow: WFL Odynophagia: Oral Coughing/Throat Clear: No Change in Voice: No Other Findings/Remarks: 67 yo male seen at bedside for swallow eval to r/o dysphagia. Pt is verbal, A& Ox3, cooperative. Pt presents with PHMHX of arrhythmia and HIV, admitted to [facility] secondary to generalized weakness and left facial droop (mild). Oral examination revealed mild left weakness edentulous upper jaw, voicing with within normal limits and adequate airway protection. Current diet dysphagia whole with thin liquids. Pt given po trials of puree, mech soft without assistance revealed good acceptance, adequate bolus formation and transport, pharyngeal swallows appear timely with no s/s of dysphagia at this time. Thin liquid trials using cup and straw were remarkable for dysphagia at this time. Recommendations - Speech Evaluation, Impression/Plan Impression: 67 yo male presents with mild ian-pharyngeal dysphagia secondary to mild left side facial droop and dental status. Pt is able to tolerate purees and dysphagia whole solids and thin liquids without s/s of aspiration at this time. Fci Goals: tolerate the least restrictive diet consistency without s/s of dysphagia and / or aspiration. Short Term Goals: tolerate dysphagia whole solids and thin liquids. - Dysphagia Impressions/Plan Swallowing Skills: Impaired Dysphagia Impressions: Minimal Impairment Dysphagia Treatment Plan: Small Bites, Safe Rate, Elevate HOB during feed Dysphagia Evaluation Summary: Offer dysphagia whole solids and thin liquids as tolerated. Provide oral care as needed. Medications may be given whole with liquids or crushed in applesauce. Results given to ore charger Benna and to pcp via chart. FACILITIES ADMINISTRATOR to follow up as needed. Recommendations: Neuro Consult (consider for left side facial droop.) - Recommendations Diet Consistency: Dysphagia Whole Medication Administration: Whole with water Liquids: Thin Liquids
--- NOTE | 2017-03-24 11:49 | PN ---
Physical Exam: SUBJECTIVE: Patient seen and examined No acute events overnight. Patient has no issues with eating/swallowing. OBJECTIVE: Vital Signs Period Temp Pulse Resp BP Sys/Green Pulse Ox Last 24 Hr 97.9 F-99.4 F 50-67 18-18 125-146/62-95 99-99 GENERAL: Awake, alert, and fully oriented, in no acute distress. HEAD: Normal with no signs of trauma. EYES: Pupils equal, round and reactive to light, extraocular movements intact, sclera anicteric, conjunctiva clear. No lid lag. EARS, NOSE, THROAT:Moist mucous membranes. NECK: supple, no JVD LUNGS: Breath sounds equal, clear to auscultation bilaterally. HEART: Regularly irregular, s1+, s2+ ABDOMEN: Soft, nontender, not distended, normoactive bowel sounds, No hepatomegaly or splenomegaly. MUSCULOSKELETAL: No CVA tenderness. UPPER EXTREMITIES: 2+ radial pulses, warm, well-perfused. No cyanosis. No clubbing. No peripheral edema. LOWER EXTREMITIES: 2+ DP pulses, warm, well-perfused. No calf tenderness. No peripheral edema. NEUROLOGICAL: slight L facial droop around mouth, not involving eyebrow, sensation intact. strength 5/5 in all extremities, sensation intact. Bicep reflexes 2+ cerebellar finger-nose exam wnl PSYCHIATRIC: Cooperative. Good eye contact. Appropriate mood and affect. SKIN: Warm, dry Laboratory Results - last 24 hr 03/23/17 06:10 Urine Color Yellow Urine Appearance Clear Urine pH 5.0 Ur Specific [place] 1.025 Urine Protein Negative Urine Glucose (UA) Negative Urine Ketones Negative Urine Blood 1+ H Urine Nitrite Negative Urine Bilirubin Negative Urine Urobilinogen Negative Ur Leukocyte Esterase 2+ H Urine RBC 11 Urine WBC 24 Ur Epithelial Cells Rare Urine Mucus Rare Active Medications Generic Name Dose Route Start Last Admin Trade Name Freq PRN Reason Stop Dose Admin Aspirin 81 mg 03/23/17 10:00 03/24/17 10:06 Ecotrin - PO 81 mg DAILY RAFFI Administration Atorvastatin Calcium 80 mg 03/22/17 22:00 03/23/17 21:46 Lipitor - PO 80 mg HS RAFFI Administration Sodium Chloride 1,000 mls @ 75 mls/hr 03/22/17 23:15 03/22/17 23:25 Normal Saline - IV 75 mls/hr ASDIR RAFFI Administration ASSESSMENT/PLAN: 67 yo M with a pmh of HIV and an arrhythmia who presented to the ED with a fatigue, weakness, and left facial droop #Acute CVA (R frontal, chronic bilateral cerebral, and chronic left pontine infarct) -Admitted to telemetry -Likely an embolic phenomenon -Holter monitor, Echo, MANI pending -Continue aspirin 81 mg PO and lipitor 80 mg PO hs -PT pending -Speech evaluation completed- "Diet Consistency: Dysphagia Whole, Medication Administration: Whole with water, Liquids: Thin Liquids" #HIV -Continue HAART therapy (Find out home meds) #History of arrhythmia -Pulse irregular today -Stat EKG performed Visit type - Emergency Visit Emergency Visit: No - New Patient This patient is new to me today: Yes Date on this admission: 03/24/17 - Critical Care Critical Care patient: No
--- NOTE | 2017-03-24 12:22 | PN ---
Teaching Attending Note Name of Resident: Garcia Ovalle ATTENDING PHYSICIAN STATEMENT I saw and evaluated the patient. I reviewed the resident's note and discussed the case with the resident. I agree with the resident's findings and plan as documented. SUBJECTIVE: No complaints. OBJECTIVE: Vital Signs Period Temp Pulse Resp BP Sys/Green Pulse Ox Last 24 Hr 97.9 F-99.4 F 50-67 18-18 125-146/62-95 99-99 HEART: Irregular LUNGS: Clear ABDOMEN: Soft, non-tender, non-distended, normal BS EXTREMITIES: No edema NEUROLOGICAL: Mild left facial droop ASSESSMENT AND PLAN: This is a 67-year-old man with a history of HIV, arrhythmia who presented to the ER with fatigue, weakness and left facial droop. 1. Acute right frontal infarcts with multiple chronic bilateral cerebral infarcts and chronic left pontine infarct - Likely embolic - Continue to monitor on telemetry - Cardiology consult appreciated - Holter, echo - May need MANI - Neurology consult appreciated - Continue aspirin, Lipitor - Physical therapy evaluation 2. Dysphagia - Swallow evaluation appreciated - Continue dysphagia solids and thin liquids 3. HIV - Patient reports being on HAART at home but does not the medications - will obtain home medication list 4. History of arrhythmia
--- NOTE | 2017-03-24 12:42 | PN ---
Progress Note (short form) - Note Progress Note: cc acute stroke HPI 67 year old male hsitory of hiv ( on haart and cd4 is 629), as per patient he is complaint . Patient denies any cardiac condition but in chart it is mentioned that he has cardiac arrthmia. Patient has been experiencing generalized weakness and balance difficulty. Now he denies any difficulty swallowing or headhace , no motor weakness. He is able to walk . 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 vascualr risk factor include Smoking and HIV ( He denies DM, HTN HYPERLIPIDEMIA ) no new focal neurological symptoms( weakness, headhace , dysphagia , dysarthria) Neurological Exmiantion Alert and oriented x 3, speech is normal ( he is not wearing any denture) able to follow command Mild left facial droopiness, eomi and pupilks are reactive, visual field is normal motor , normal strength in all four extremity , he is able to walk Sensation is normal MRI REVIWED SHOWED LARGE mca stroke Assessment 67 year old male history of HIV and admitted for feeling generalized weak and left sided facial droopiness, and found to have large right MCA ischemic stroke, CLINICALLY STABLE Plan -- continue aspirin and statin - no need for mra of brain as it would not change any management at this time. - continue current level of care. - pt , dvt prophylaxis and swallowing study - stroke education and smoking cessation thank you so much norberto gottlieb md
[2017-03-24] MEDS: ATORVASTATIN CA 80 MG TABLET (FP) PO SCH (21:04)
[2017-03-24] MEDS: SODIUM CHLORIDE 1,000 ML IV SCH ×2 (21:07→23:01)
[2017-03-24] MEDS ORDERED: ACETAMINOPHEN 325 MG TABLET (FP) PO ONE (21:38)
[2017-03-25 06:57] LABS: BASOPHIL 0.8 % (0-2.0); EOSINOPHIL 3.7 % (0-4.5); MCH 31.2 pg (25.7-33.7); MCHC 34.4 g/dl (32.0-35.9); MEAN CELL VOLUME 90.7 fl (80-96); MEAN PLT VOLUME 8.1 fl (7.5-11.1); NEUTROPHILS 51.9 % (42.8-82.8); PLATELET COUNT 204 K/MM3 (134-434); RDW 13.5 % (11.9-15.9); WHITE BLOOD COUNT 5.1 K/mm3 (4.0-10.0)
[2017-03-25 07:12] LABS: ANION GAP 7 (8-16); CALCIUM 8.6 mg/dL (8.5-10.1); CO2 27 mmol/L (21-32); CREATININE 0.9 mg/dL (0.7-1.3); GLUCOSE,RANDOM 91 mg/dL (74-106); PHOSPHOROUS 3.1 mg/dL (2.5-4.9)
[2017-03-25] MEDS: ASPIRIN COATED 81 MG TABLET.EC PO SCH (10:00)
--- NOTE | 2017-03-25 10:19 | CONS ---
DATE OF CONSULTATION: 03/23/2017 REQUESTING PROVIDER: Hospitalist. CHIEF COMPLAINT: Weakness, cardiovascular evaluation, cardiac arrhythmia. HISTORY OF PRESENT ILLNESS: A 67-year-old male of descent with known history of HIV positivity on therapy, who denied any history of hypertensive cardiovascular disease, diabetes mellitus, hypercholesterolemia, who presented to [facility] with progressive weakness which has been noted over the last 2 days with recurrent falls and urinary incontinence. Patient did not report any prior history of cerebrovascular disease. Patient did not report any prior history of coronary artery disease or congestive heart failure. Weakness was generalized and, in addition, left sided. Patient currently is resting comfortably in bed and denies any symptoms. Patient stated that several years ago, he was noted to have cardiac arrhythmia; evaluation of which was negative. Patient denies any chest discomfort. Patient denies any dyspnea, orthopnea, paroxysmal nocturnal dyspnea , or peripheral edema. Patient denies any palpitations, dizziness, lightheadedness, or syncope. PAST MEDICAL HISTORY: HIV positivity on therapy, remote history of cardiac arrhythmia, unknown type. PAST SURGICAL HISTORY: None. SOCIAL HISTORY: A smoker. FAMILY HISTORY: No family history of coronary artery disease. ALLERGIES: PENICILLIN. MEDICAL THERAPY AT HOME: Not available. REVIEW OF SYSTEMS: Head and Neck: Denies headache, photophobia, blurring of vision. Respiratory: No cough or sputum production. Cardiovascular: As noted above. Gastrointestinal: Denies nausea, vomiting, diarrhea, abdominal discomfort. Genitourinary: Reported incontinence. Musculoskeletal: Left-sided weakness. PHYSICAL EXAMINATION: Vital Signs: Blood pressure is 124/68 mmHg. Pulse rate is 49 beats per minute, regular, with ectopics. Head and Neck: Pupils equal, reactive to light and accommodation. Extraocular muscles intact. Anicteric sclerae. Negative JVD. No bruit appreciated. Chest: Clear to auscultation and percussion. Cardiovascular: S1, 2 regular. Occasional ectopics. Grade 1/6 systolic apical murmur. No clicks or gallops. Abdomen: Soft, benign. Normoactive bowel sounds. Extremities: Negative edema. Intact distal pulses. No calf tenderness. Electrocardiogram revealed sinus rhythm with premature supraventricular contractions, sinus bradycardia, and nonspecific T-wave abnormality. Carotid Doppler study revealed no Doppler evidence of high-grade carotid artery stenosis. MRI of the brain revealed acute right frontal cortical and subcortical infarct; multiple chronic bilateral cerebral infarcts; punctate chronic left pontine infarct. CT of the head report was noted. CBC revealed white cell count 4.4, hemoglobin 12.9, platelet count 175. Basic metabolic profile revealed sodium 139, potassium 4.2, BUN of 23, creatinine 1.5. Estimated GFR 46.40. Glucose 107. Lipid profile is pending. ASSESSMENT: 1. Clinical presentation consistent with acute stroke with an abnormal MRI of the brain, multiple strokes. Embolic disease to be considered as a differential includes cardiac source of embolization, i.e. paroxysmal atrial fibrillation, paradoxical embolization, aortic atherosclerotic disease, carotid atherosclerotic disease, or intracranial vascular disease. 2. Sinus bradycardia with premature supraventricular contractions, premature ventricular contraction, and evidence of accelerated idioventricular rhythm. 3. Heart murmur. 4. Human immunodeficiency virus, on therapy. 5. Chronic kidney disease. RECOMMENDATION: 1. Continuation of aspirin pending completion of evaluation. 2. Echocardiography for evaluation of left ventricular and right ventricular function and valvular function. 3. Holter monitor for evaluation of the above-noted arrhythmia. 4. MRA of the brain for evaluation of the intracranial circulation. 5. Pending results of above, consideration for proceeding with transesophageal echocardiography and extended monitoring as outpatient to exclude potential paroxysmal atrial fibrillation. Thank you for the kind referral. JOSE AREVALO M.D. [id number] MTDD
--- NOTE | 2017-03-25 11:08 | PN ---
Progress Note, Physician Chief Complaint: Events noted Not in distress Improved left arm weakness History of Present Illness: Patient was seen and examined. Awake and alert. Chart was reviewed Denies chest pain, SOB or palpitations Mild confusion intermittently - Current Medication List Current Medications: Active Medications Aspirin (Ecotrin -) 81 mg PO DAILY [facility] Last Admin: 03/24/17 10:06 Dose: 81 mg Atorvastatin Calcium (Lipitor -) 80 mg PO HS [facility] Last Admin: 03/24/17 21:04 Dose: 80 mg Sodium Chloride (Normal Saline -) 1,000 mls @ 75 mls/hr IV ASDIR [facility] Last Admin: 03/24/17 23:01 Dose: Not Given - Objective Vital Signs: Vital Signs Temperature 98.7 F 03/25/17 10:00 Pulse Rate 40 L 03/25/17 10:00 Respiratory Rate 20 03/25/17 10:00 Blood Pressure 133/60 03/25/17 10:00 O2 Sat by Pulse Oximetry (%) 97 03/25/17 09:00 Neck: Yes: Supple Cardiovascular: Yes: Pulse Irregular, Murmur (Soft SM), S1, S2 Respiratory: Yes: CTA Bilaterally Gastrointestinal: Yes: Normal Bowel Sounds, Soft. No: Tenderness Edema: No Additional Findings/Remarks: Review of Systems Cardiovascular: As noted above Respiratory: denies: Cough or Sputum Production Gastrointestinal: denies: Nausea, Vomiting, Diarrhea, Constipation or Abdominal Discomfort Musculoskeletal: No Symptoms Reported Endocrine: No Symptoms Reported Labs: CBC, BMP 03/25/17 06:00 03/25/17 06:00 Laboratory Results - last 24 hr 03/25/17 03/25/17 06:00 06:00 WBC 5.1 RBC 4.27 Hgb 13.3 Hct 38.7 MCV 90.7 MCH 31.2 MCHC 34.4 RDW 13.5 Plt Count 204 MPV 8.1 Neutrophils % 51.9 Lymphocytes % 35.5 Monocytes % 8.1 Eosinophils % 3.7 Basophils % 0.8 Sodium 140 Potassium 3.7 Chloride 106 Carbon Dioxide 27 Anion Gap 7 L BUN 19 H Creatinine 0.9 Random Glucose 91 Calcium 8.6 Phosphorus 3.1 Magnesium 2.0 Problem List - Problems (1) CVA (cerebral vascular accident) Code(s): I63.9 - CEREBRAL INFARCTION, UNSPECIFIED Qualifiers: CVA mechanism: embolism Precerebral and cerebral artery: middle cerebral artery Laterality of affected vessel: bilateral Qualified Code(s): I63.413 - Cerebral infarction due to embolism of bilateral middle cerebral arteries (2) HIV (human immunodeficiency virus infection) Code(s): Z21 - ASYMPTOMATIC HUMAN IMMUNODEFICIENCY VIRUS INFECTION STATUS (3) Hernia Code(s): K46.9 - UNSPECIFIED ABDOMINAL HERNIA WITHOUT OBSTRUCTION OR GANGRENE (4) Palpitations Code(s): R00.2 - PALPITATIONS (5) Atrial premature complex Code(s): I49.1 - ATRIAL PREMATURE DEPOLARIZATION (6) Ventricular premature complex Code(s): I49.3 - VENTRICULAR PREMATURE DEPOLARIZATION Assessment/Plan 1. Acute stroke, abnormal MRI of the brain, embolic disease -rule out paradoxical embolization, aortic atherosclerotic disease, carotid atherosclerotic disease or intra-cranial vascular disease 2. Sinus bradycardia with APCs, PVCs, AIVR and non-sustained SVT 3. Heart Murmur related to AV disease probable AV sclerosis, unlikely stenosis 4. HIV ? history of substance abuse 5. CKD PLAN: 1. Continue ASA pending completion of evaluation 2. Transthoracic echocardiography for evaluation of LV/RV function and valvular function 3. Holter monitor for evaluation of the above noted arrhythmia, in progress - rule out atrial fibrillation - currently bradycardic intermittently, not on AV curtis agent 4. Further neurology work up to follow 5. Consider MANI today to rule out source of emboli. 6. Continue statin -follow lipid panel and adjust statin accordingly Further plans are to follow Jose Uribe MD
[2017-03-25] MEDS: SODIUM CHLORIDE 1,000 ML IV SCH (11:21)
--- NOTE | 2017-03-25 12:41 | EKG ---
Test Reason : Blood Pressure : / mmHG Vent. Rate : 061 BPM Atrial Rate : 061 BPM P-R Int : 000 ms QRS Dur : 106 ms QT Int : 458 ms P-R-T Axes : 000 033 -32 degrees QTc Int : 461 ms SINUS RHYTHM WITH PREMATURE ATRIAL COMPLEXES NONSPECIFIC ST AND T WAVE ABNORMALITY ABNORMAL ECG WHEN COMPARED WITH ECG OF 22-MAR-2017 11:48, LIKELY NO SIGNIFICANT CHANGES WERE SEEN Confirmed by ADELA VILLAREAL, GERMAN ([id number]) on 03/25/2017 12:41:03 PM Referred By: YENNY BACA Confirmed By:GERMAN CHAPMAN MD
[2017-03-25] MEDS ORDERED: LIDOCAINE VISCOUS 2% ORAL/TOP 20 ML UNIT-DOSE CUP MM ONE ×2 (12:44→12:51)
[2017-03-25] MEDS ORDERED: PROPOFOL 20 ML ONE (12:50)
--- NOTE | 2017-03-25 14:27 | PN ---
Teaching Attending Note Name of Resident: Garcia Ovalle ATTENDING PHYSICIAN STATEMENT I saw and evaluated the patient. I reviewed the resident's note and discussed the case with the resident. I agree with the resident's findings and plan as documented. SUBJECTIVE: OBJECTIVE: Vital Signs Period Temp Pulse Resp BP Sys/Green Pulse Ox Last 24 Hr 97.8 F-99.4 F 40-81 15-20 91-156/60-86 95-100 ASSESSMENT AND PLAN:
--- NOTE | 2017-03-25 14:39 | PN ---
Physical Exam: SUBJECTIVE: Patient seen and examined No acute events overnight. Patient has no complaints this morning. OBJECTIVE: Vital Signs Period Temp Pulse Resp BP Sys/Green Pulse Ox Last 24 Hr 97.8 F-99.4 F 40-81 15-20 91-156/60-86 95-100 GENERAL: Awake, alert, and fully oriented, in no acute distress. HEAD: Normal with no signs of trauma. EYES: Pupils equal, round and reactive to light, extraocular movements intact, sclera anicteric, conjunctiva clear. No lid lag. EARS, NOSE, THROAT:Moist mucous membranes. NECK: supple, no JVD LUNGS: Breath sounds equal, clear to auscultation bilaterally. HEART: Regularly irregular, s1+, s2+ ABDOMEN: Soft, nontender, not distended, normoactive bowel sounds, No hepatomegaly or splenomegaly. MUSCULOSKELETAL: No CVA tenderness. UPPER EXTREMITIES: 2+ radial pulses, warm, well-perfused. No cyanosis. No clubbing. No peripheral edema. LOWER EXTREMITIES: 2+ DP pulses, warm, well-perfused. No calf tenderness. No peripheral edema. NEUROLOGICAL: slight L facial droop around mouth, not involving eyebrow, sensation intact. strength 5/5 in all extremities, sensation intact. Bicep reflexes 2+ cerebellar finger-nose exam wnl PSYCHIATRIC: Cooperative. Good eye contact. Appropriate mood and affect. SKIN: Warm, dry Laboratory Results - last 24 hr 03/25/17 03/25/17 06:00 06:00 WBC 5.1 RBC 4.27 Hgb 13.3 Hct 38.7 MCV 90.7 MCH 31.2 MCHC 34.4 RDW 13.5 Plt Count 204 MPV 8.1 Neutrophils % 51.9 Lymphocytes % 35.5 Monocytes % 8.1 Eosinophils % 3.7 Basophils % 0.8 Sodium 140 Potassium 3.7 Chloride 106 Carbon Dioxide 27 Anion Gap 7 L BUN 19 H Creatinine 0.9 Random Glucose 91 Calcium 8.6 Phosphorus 3.1 Magnesium 2.0 Active Medications Generic Name Dose Route Start Last Admin Trade Name Freq PRN Reason Stop Dose Admin Aspirin 81 mg 03/23/17 10:00 03/25/17 10:00 Ecotrin - PO Not Given DAILY [facility]FFI Atorvastatin Calcium 80 mg 03/22/17 22:00 03/24/17 21:04 Lipitor - PO 80 mg HS [facility]I Administration Sodium Chloride 1,000 mls @ 75 mls/hr 03/22/17 23:15 03/25/17 11:21 Normal Saline - IV 75 mls/hr ASDIR [facility] Administration ASSESSMENT/PLAN: 67 yo M with a pmh of HIV and an arrhythmia who presented to the ED with a fatigue, weakness, and left facial droop #Acute CVA (R frontal, chronic bilateral cerebral, and chronic left pontine infarct) -Admitted to telemetry -Likely an embolic phenomenon -Holter monitor, Echo, MANI results pending -Continue aspirin 81 mg PO and lipitor 80 mg PO hs -PT pending -Speech evaluation completed- "Diet Consistency: Dysphagia Whole, Medication Administration: Whole with water, Liquids: Thin Liquids" #HIV -unable to obtain medication list #History of arrhythmia -Pulse irregular -Monitor tele for any A. fib Visit type - Emergency Visit Emergency Visit: No - New Patient This patient is new to me today: No - Critical Care Critical Care patient: No
--- NOTE | 2017-03-25 17:06 | HOL ---
Hook-up date: 2017-03-23 11:18:00 Duration: 24:00:00 Test Indications: Medications: 62035 QRS complexes 540 Ventricular ectopics which represent <1 % of total QRS comp. 58643 Supraventricular ectopics which represent 53 % of total QRS comp. * Paced QRS complexs which represent % of total QRS comp. 1 % of Time Classified as Noise VENTRICULAR ECTOPY 501 Isolated 0 Bigeminal Cycles 10 Couplets 5 Runs 19 Beats in Runs 6 Beats LONGEST at 151 BPM at 17:00:20 2017-03-23 6 Beats FASTEST at 151 BPM at 17:00:20 2017-03-23 SUPRAVENTRICULAR ECTOPY 86062 Isolated 1371 Couplets 3951 Runs 47839 Beats in Runs 128 Beats LONGEST at 93 BPM at 14:28:34 2017-03-23 3 Beats FASTEST at 123 BPM at 17:43:26 2017-03-23 HEART RATES 32 MIN at 02:24:48 2017-03-24 58 AVG 134 MAX at 08:07:26 2017-03-24 LONGEST RR 2.088 secs at 03:21:12 2017-03-[address] YU 03/25/2017 1. BASELINE RHYTHM APPEARS TO BE SINUS RHYTHM WITH AVERAGE HR OF 58 BPM. RATES VARIED FROM 32 TO 134 BPM. - PERIODS OF SINUS BRADYCARDIA AND PERIODS OF SINUS TACHYCARDIA WERE NOTED. NO PAUSES WERE SEEN 2. OCCASIONAL VENTRICULAR ECTOPIES - PVCS AND NON-SUSTAINED VT - 6 BEATS 3. OCCASIONAL ATRIAL ECTOPIES 4. NONSPECIFIC ST-T WAVE ABNORMALITIES 5. DIARY WAS NOT SUBMITTED Confirmed by GERMAN CHAPMAN MD ([id number]) on 03/25/2017 5:05:27 PM Referred By: Overread By: GERMAN CHAPMAN MD
[2017-03-25] MEDS: ATORVASTATIN CA 80 MG TABLET (FP) PO SCH (21:24)
[2017-03-26] MEDS: SODIUM CHLORIDE 1,000 ML IV SCH (03:21)
[2017-03-26 07:20] LABS: BASOPHIL 0.6 % (0-2.0); EOSINOPHIL 2.4 % (0-4.5); MCH 31.3 pg (25.7-33.7); MCHC 34.3 g/dl (32.0-35.9); MEAN CELL VOLUME 91.3 fl (80-96); MEAN PLT VOLUME 8.5 fl (7.5-11.1); NEUTROPHILS 60.2 % (42.8-82.8); PLATELET COUNT 208 K/MM3 (134-434); RDW 14.1 % (11.9-15.9); WHITE BLOOD COUNT 6.6 K/mm3 (4.0-10.0)
[2017-03-26 07:48] LABS: ANION GAP 8 (8-16); CALCIUM 8.8 mg/dL (8.5-10.1); CO2 25 mmol/L (21-32); GLUCOSE,RANDOM 86 mg/dL (74-106); MAGNESIUM 1.9 mg/dL (1.8-2.4); PHOSPHOROUS 3.3 mg/dL (2.5-4.9)
[2017-03-26] MEDS: ASPIRIN COATED 81 MG TABLET.EC PO SCH (09:24)
--- NOTE | 2017-03-26 11:53 | PN ---
Progress Note, Physician Chief Complaint: Events noted Not in distress Improved left arm weakness MANI and TTE report on chart History of Present Illness: Patient was seen and examined. Awake and alert. Chart was reviewed Denies chest pain, SOB or palpitations Still with frequent atrial and ventricular ectopies and periods of sinus tachycardia and bradycardia - not symptomatic - Current Medication List Current Medications: Active Medications Aspirin (Ecotrin -) 81 mg PO DAILY [facility] Last Admin: 03/26/17 09:24 Dose: 81 mg Atorvastatin Calcium (Lipitor -) 80 mg PO HS [facility] INCLUDES [facility] Last Admin: 03/25/17 21:24 Dose: 80 mg - Objective Vital Signs: Vital Signs Temperature 98.2 F 03/26/17 10:00 Pulse Rate 72 03/26/17 10:00 Respiratory Rate 18 03/26/17 10:00 Blood Pressure 118/63 03/26/17 10:00 O2 Sat by Pulse Oximetry (%) 98 03/26/17 10:00 Neck: Yes: Supple Cardiovascular: Yes: Pulse Irregular, S1, S2 Respiratory: Yes: CTA Bilaterally Gastrointestinal: Yes: Normal Bowel Sounds, Soft. No: Tenderness Edema: No Additional Findings/Remarks: Review of Systems Cardiovascular: As noted above Respiratory: denies: Cough or Sputum Production Gastrointestinal: denies: Nausea, Vomiting, Diarrhea, Constipation or Abdominal Discomfort Musculoskeletal: No Symptoms Reported Endocrine: No Symptoms Reported Labs: CBC, BMP 03/26/17 05:35 03/26/17 05:35 Problem List - Problems (1) CVA (cerebral vascular accident) Code(s): I63.9 - CEREBRAL INFARCTION, UNSPECIFIED Qualifiers: CVA mechanism: embolism Precerebral and cerebral artery: middle cerebral artery Laterality of affected vessel: bilateral Qualified Code(s): I63.413 - Cerebral infarction due to embolism of bilateral middle cerebral arteries (2) HIV (human immunodeficiency virus infection) Code(s): Z21 - ASYMPTOMATIC HUMAN IMMUNODEFICIENCY VIRUS INFECTION STATUS (3) Hernia Code(s): K46.9 - UNSPECIFIED ABDOMINAL HERNIA WITHOUT OBSTRUCTION OR GANGRENE (4) Palpitations Code(s): R00.2 - PALPITATIONS (5) Atrial premature complex Code(s): I49.1 - ATRIAL PREMATURE DEPOLARIZATION (6) Ventricular premature complex Code(s): I49.3 - VENTRICULAR PREMATURE DEPOLARIZATION (7) Systolic dysfunction without heart failure Code(s): I51.9 - HEART DISEASE, UNSPECIFIED Assessment/Plan MANI revealed mildly reduced LV systolic function with global hypokinesia, mild MR, TR and DC, no thrombus in LA appendage and no shunt 1. Acute stroke, abnormal MRI of the brain, embolic disease -rule out paradoxical embolization, aortic atherosclerotic disease, carotid atherosclerotic disease or intra-cranial vascular disease 2. Sinus bradycardia with APCs, PVCs, AIVR and non-sustained SVT 3. Heart Murmur related to AV disease probable AV sclerosis - no stenosis 4. HIV history of marijuana use 5. CKD PLAN: 1. Continue ASA 2. Transthoracic echocardiography and MANI reviewed patient. Case also discussed with primary service 3. Holter monitor for evaluation of the above noted arrhythmia reviewed with frequent atrial and ventricular ectopies 4. In view of LV systolic dysfunction, consider starting ACEI or ARB. Further work up including nuclear stress testing is to be considered as outpatient. Patient was given instruction to follow up in office. Other option is to initiate Carvedilol if HR tolerates especially in view of frequent ectopies 5. Continue statin, but consider lowering it to Atorvastatin 40 mg once a day- follow lipid panel and adjust statin accordingly Further plans are to follow. Discharge planning to SNF Jose Uribe MD
[2017-03-26] MEDS ORDERED: LISINOPRIL 5 MG TABLET (FP) PO SCH (12:00)
[2017-03-26] MEDS ORDERED: ATORVASTATIN CA 40 MG TABLET (FP) PO SCH (12:00)
--- NOTE | 2017-03-26 13:20 | EKG ---
Test Reason : Blood Pressure : / mmHG Vent. Rate : 059 BPM Atrial Rate : 059 BPM P-R Int : 204 ms QRS Dur : 104 ms QT Int : 468 ms P-R-T Axes : 046 052 -16 degrees QTc Int : 463 ms SINUS BRADYCARDIA WITH PREMATURE ATRIAL COMPLEXES SEEN IN A BEGIMINAL PATTERN,MAY RELATED TO [place] T WAVE ABNORMALITY, CONSIDER INFERIOR ISCHEMIA PROLONGED QT ABNORMAL ECG WHEN COMPARED WITH ECG OF 24-MAR-2017 10:13, NO MAJOR CHANGE SEEN Confirmed by JACI COLON MD ([id number]) on 03/26/2017 1:19:56 PM Referred By: TAMI STALEY Confirmed By:JACI COLON MD
[2017-03-26 15:06] VITALS: BP 129/64; PULSE 56; TEMP 98.4
--- NOTE | 2017-03-26 16:06 | DS ---
Physical Exam: LABS Laboratory Results - last 24 hr Last Vital Signs Temp Pulse Resp BP Pulse Ox 98.4 F 56 L 18 129/64 98 03/26/17 14:00 03/26/17 14:00 03/26/17 14:00 03/26/17 14:00 03/26/17 10:00 HOSPITAL COURSE: Date of Admission:03/22/17 Date of Discharge: 03/26/17 67 yo M with PMH of HIV (on HAART, most recent CD4 629), arrythmia not on a/c, who presented to the ED with L facial droop that was noted in his HIV clinic. Patient had a brain MRI, which showed acute right frontal cortical and subcortical infarcts, as well as multiple chronic infarcts. Patient was admitted for acute CVA outside of the tPA window. Patient was started on aspirin 81 mg and lipitor 80 mg. He had a negative chest xray and negative carotid doppler. He was found to have mild dysphagia on swallow evaluation, and able to walk 75 feet on physical therapy evaluation. During his stay, patient underwent multiple EKG's, which showed arrhythmia with frequent atrial and ventricular ectopies. Patient also underwent a MANI, which showed no thrombus and mild global hypokinesis of the left ventricle. [facility] and will follow up outpatient with neurology, cardiology, and his PCP. Minutes to complete discharge: 30 Discharge Summary Reason For Visit: STROKE LIKE SYMPTOMS Current Active Problems CVA (cerebral vascular accident) (Acute) Systolic dysfunction without heart failure (Acute) Arrhythmia (Chronic) HIV (human immunodeficiency virus infection) (Chronic) Condition: Improved - Instructions Diet, Activity, Other Instructions: You were in the hospital because you had a stroke. Please follow up with your primary care provider in 1 week ([facility]) Please follow up with the neurologist you saw in the hospital in 1 week (Dr. Cintron) Please follow up with the pre billing specialist you saw in the hospital in 1 week (Dr. Blanton) Continue your home medications. Continue taking aspirin 81 mg by mouth daily Start taking Lipitor 40 mg by mouth at night. Start taking Lisinopril 5 mg by mouth daily. If you have any chest pain, shortness of breath, or any new symptoms please come back to the hospital immediately. Referrals: [facility] [Provider Group] Elton batres [facility] [Outside] Nicho Cintron MD [Staff Physician] - 1 Week Geovani Blanton MD [Staff Physician] - 1 Week Disposition: RESIDENTIAL FACILITY - Home Medications Comprehensive Discharge Medication List: Ambulatory Orders Aspirin Coated [Ecotrin -] 81 mg PO DAILY #30 tablet 03/26/17 Atorvastatin Ca [Lipitor] 40 mg PO HS #30 tablet 03/26/17 Lisinopril [Prinivil] 5 mg PO DAILY #30 tablet 03/26/17 This patient is new to me today: No Emergency Visit: No Critical Care patient: No - Discharge Referral Referred to [facility] Med P.C.: No
--- NOTE | 2017-03-26 18:12 | PN ---
Teaching Attending Note Name of Resident: Garcia Ovalle ATTENDING PHYSICIAN STATEMENT I saw and evaluated the patient. I reviewed the resident's note and discussed the case with the resident. I agree with the resident's findings and plan as documented. SUBJECTIVE: OBJECTIVE: Vital Signs Period Temp Pulse Resp BP Sys/Green Pulse Ox Last 24 Hr 98.2 F-99.7 F 56-72 18-18 118-142/63-78 98-98 ASSESSMENT AND PLAN:
== END 2017-03-26 16:26 | DRG 65 ==
LOC: JER 11:34 → JERBED 20:01 → J4S 22:16
PROVIDERS: ADMIT Internal Medicine; ATTEND Internal Medicine
DX: I63.413 Cerebral infarction due to embolism of bilateral middle cerebral arteries (principal); N17.9 Acute kidney failure, unspecified; G81.94 Hemiplegia, unspecified affecting left nondominant side; R13.10 Dysphagia, unspecified; R29.810 Facial weakness; I10 Essential (primary) hypertension; F12.10 Cannabis abuse, uncomplicated; I49.3 Ventricular premature depolarization; I49.1 Atrial premature depolarization; R00.1 Bradycardia, unspecified; Z21 Asymptomatic human immunodeficiency virus [HIV] infection status; Z72.0 Tobacco use; Z96.653 Presence of artificial knee joint, bilateral; Z96.641 Presence of right artificial hip joint; N18.9 Chronic kidney disease, unspecified
CPT/HCPCS: 36415; 70450-TC; 70551-TC; 71010-TC; 76775-TC; 80048; 80053; 80061; 81003; 81015; 82465; 83036; 83721; 83735; 84100; 85025; 85027; 87086; 93005; 93010; 93225; 93226; 93306-TC; 93312; 93325; 93880-TC; 97116-GP; 97161-GP; 99285-25; G0463-25